=== PATIENT | female | born 1975 | race Caucasian/White ===

== ENCOUNTER 2017-10-12 15:29 | Emergency (ER) | payer MEDICAID ==
[2017-10-12] MEDS ORDERED: IPRATROPIUM (NEB) 0.5 MG/2.5 ML AMP (22:27)
[2017-10-12] MEDS ORDERED: ALBUTEROL 0.083% (NEB) 2.5 MG/3 ML AMP (22:27)
== END 2017-10-12 16:30 | disposition home or self-care (01) ==
LOC: E/R 16:30
DX: M94.0 Chondrocostal junction syndrome [Tietze] (principal)
CPT/HCPCS: 99282; Z7502